=== PATIENT | male | born 1950 | race African-American/Black ===

== ENCOUNTER 2022-05-12 10:40 | Emergency (ER) | payer BC, MEDICAID ==
[~2022-05-12] VITALS: Ht 180.3 cm; Wt 77.1 kg
[2022-05-12 11:09] VITALS: BP 160/93
--- NOTE | 2022-05-12 11:13 | NUR ---
DOROTHY ALS TO ER BED 12
[2022-05-12 12:26] LABS: BASOPHILS % (AUTO) 0.2 % (0.0-2.0); EOSINOPHILS # (AUTO) 0.1 K/uL (0-0.4); EOSINOPHILS % (AUTO) 1.9 % (0.0-4.0); HEMATOCRIT 34.9 % (36-52); LYMPHOCYTES # (AUTO) 1.5 K/uL (2.0-11.5); LYMPHOCYTES % (AUTO) 34.5 % (20.5-51.1); MEAN CORPUSCULAR HEMOGLOBIN 32 pg (27-31); MEAN CORPUSCULAR HGB CONC 35 g/dL (33-37); MEAN CORPUSCULAR VOLUME 92.8 fL (80-94); MONOCYTES # (AUTO) 0.5 K/uL (0.8-1.0); MONOCYTES % (AUTO) 11.2 % (1.7-9.3); NEUTROPHILS # (AUTO) 2.2 K/uL (1.8-7.7); NEUTROPHILS % (AUTO) 52.2 % (42.2-75.2); PLATELET COUNT (AUTO) 235 K/uL (140-450); RED BLOOD CELL COUNT(AUTO) 3.76 MIL/uL (4.20-6.10); RED CELL DISTRIBUTION WIDTH 13.3 % (11.6-13.7); WHITE BLOOD COUNT (AUTO) 4.3 K/uL (4.8-10.8)
[2022-05-12 12:56] LABS: ALBUMIN 3.6 g/dL (3.4-5.0); ANION GAP 8.7 (8-16); ASPARTATE AMINOTRANSFERASE 42 U/L (15-37); CHLORIDE 105 mmol/L (98-107); CREATININE 0.9 mg/dL (0.6-1.3); GLUCOSE 113 mg/dL (74-106); POTASSIUM 3.7 mmol/L (3.5-5.1); SODIUM SERUM 142 mmol/L (136-145); TOTAL BILIRUBIN 0.4 mg/dL (0.0-1.0); UREA NITROGEN, BLOOD 13 mg/dL (7-18)
--- NOTE | 2022-05-12 15:39 | NUR ---
PT LEFT WITHOUT DISCHARGE PAPERWORK
[2022-05-12 15:44] VITALS: BP 142/92
== END 2022-05-12 15:44 | disposition home or self-care (01) ==
LOC: MED 10:40
DX: R07.9 Chest pain, unspecified (principal); E11.9 Type 2 diabetes mellitus without complications; F03.90 Unspecified dementia, unspecified severity, without behavioral disturbance, psychotic disturbance, mood disturbance, and anxiety; Z98.890 Other specified postprocedural states
CPT/HCPCS: 36415; 71045; 80053; 83880; 84484; 85025; 93005; 99285

== ENCOUNTER 2022-06-19 13:58 | Emergency (ER) | payer MEDICARE, BC ==
[~2022-06-19] VITALS: Ht 185.4 cm; Wt 83.9 kg
[2022-06-19 14:05] VITALS: BP 189/99
--- NOTE | 2022-06-19 14:18 | NUR ---
PT BIBA TO BED 5
--- NOTE | 2022-06-19 14:20 | NUR ---
MD PATRICK AT BEDSIDE FOR EVALUATION
[2022-06-19] MEDS ORDERED: KETOROLAC 60 MG/2 ML VIAL IM ONE (14:25)
--- NOTE | 2022-06-19 14:25 | NUR ---
72YO MALE PT BIBA HOME C/O THROBBING 12/12 NECK PAIN XTODAY. REPORTS SUDDEN ONSET AFTER A NAP. PAIN AT MOST ON MOVEMENT OR TOUCH. NO VISIBLE INJURIES NOTED. DENIES INJURY OR TAKING MEDICATION FOR PAIN. PT AAOX4, NO VISIBLE DISTRESS. HX: HTN, DM, DIMENTIA NKA
[2022-06-19] MEDS ORDERED: IBUP-2213 PO (14:37)
[2022-06-19 14:46] VITALS: BP 189/99
--- NOTE | 2022-06-19 14:46 | NUR ---
Patient discharged with v/s stable. Written and verbal after care instructions given and explained. Patient alert, oriented and verbalized understanding of instructions. Ambulatory witH CANE, steady gait. All questions addressed prior to discharge. ID band removed. Patient advised to follow up with PMD. Rx of IBUPROFEN (SENT) given. Patient educated on indication of medication including possible reaction and side effects. Opportunity to ask questions provided and answered.
== END 2022-06-19 14:46 | disposition home or self-care (01) ==
LOC: MED 13:58
DX: M54.2 Cervicalgia (principal); R51.9 Headache, unspecified; E11.9 Type 2 diabetes mellitus without complications; F12.90 Cannabis use, unspecified, uncomplicated; Z79.4 Long term (current) use of insulin; Z79.899 Other long term (current) drug therapy; Z98.890 Other specified postprocedural states
CPT/HCPCS: 96372; 99283; J1885

== ENCOUNTER 2023-04-01 07:11 | Emergency (ER) | payer BC, MEDICARE, OTHER ==
[~2023-04-01] VITALS: Ht 185.4 cm; Wt 122.5 kg
[~2023-04-01 07:11] MED LIST: IBUP-2213 PO
[2023-04-01 07:15] VITALS: BP 148/84; PULSE 68; RESP 17; TEMP 97.8; O2SAT 100
[2023-04-01] MEDS ORDERED: METOCLOPRAMIDE 10 MG/2 ML INJ VIAL IVP ONE (08:15)
[2023-04-01] MEDS ORDERED: KETOROLAC 30 MG/ML VIAL IVP ONE (08:15)
[2023-04-01] MEDS ORDERED: diphenhydrAMINE 50 MG/ML VIAL IVP ONE (08:15)
[2023-04-01] MEDS ORDERED: DEXAMETHASONE 10 MG/ML VIAL IVP ONE (08:15)
[2023-04-01] MEDS ORDERED: KETOROLAC 15 MG/ML VIAL ONE (08:38)
[2023-04-01] MEDS ORDERED: ACET-2619 PO (09:01)
[2023-04-01] MEDS ORDERED: ACET-8001 PO (09:01)
[2023-04-01] MEDS ORDERED: CIPR10SU RIGHT EAR (09:04)
[2023-04-01] MEDS ORDERED: AMOX1TAB8 PO (09:07)
== END 2023-04-01 09:19 | disposition home or self-care (01) ==
LOC: MED 07:11
DX: H66.91 Otitis media, unspecified, right ear (principal); H72.91 Unspecified perforation of tympanic membrane, right ear; H93.11 Tinnitus, right ear; G43.909 Migraine, unspecified, not intractable, without status migrainosus; M79.674 Pain in right toe(s); M79.675 Pain in left toe(s); L60.2 Onychogryphosis; R35.0 Frequency of micturition; R39.198 Other difficulties with micturition; E11.9 Type 2 diabetes mellitus without complications; M19.90 Unspecified osteoarthritis, unspecified site; F03.90 Unspecified dementia, unspecified severity, without behavioral disturbance, psychotic disturbance, mood disturbance, and anxiety; Z98.890 Other specified postprocedural states; Z79.899 Other long term (current) drug therapy; Z79.1 Long term (current) use of non-steroidal anti-inflammatories (NSAID); Z79.2 Long term (current) use of antibiotics
CPT/HCPCS: 93005; 96374; 96375; 99284; J1100; J1200; J1885; J2765